=== PATIENT | female | born 1975 | race Caucasian/White ===

== ENCOUNTER 2017-02-02 20:04 | Emergency (ER) | payer OTHER | END 2017-02-02 21:15 | disposition left against medical advice (07) | LOC: UCCORT 20:04 | DX: Z53.21 Procedure and treatment not carried out due to patient leaving prior to being seen by health care provider (principal) ==

== ENCOUNTER 2019-01-10 17:12 | Emergency (ER) | payer OTHER ==
[2019-01-10 17:43] VITALS: BP 110/60
--- NOTE | 2019-01-10 18:00 | ED ---
Lower Extremity - HPI Summary HPI Summary: 43 yr old with the complaint of left knee pain. The patient rates the pain as 6 /10, onset of this acute flare up this morning,and it is mostly in the lateral knee, and at first was a twing of pain and then it progressed and also was swollen. the patient states that for the past four years she has been getting twinges of pain in this knee in the same lateral area. She states that Dr Michele operated twice on this knee; once for a meniscus tear, the other time for spur formation. The last surgery was in 2011. She denies fever, chills. Denies redness. Denies calf pain. - History of Current Complaint Chief Complaint: UCLowerExtremity Stated Complaint: LEFT KNEE PAIN Time Seen by Provider: 01/10/19 17:44 Hx Last Menstrual Period: 6 yrs Pain Intensity: 7 - Allergies/Home Medications Allergies/Adverse Reactions: Allergies Allergy/AdvReac Type Severity Reaction Status Date / Time codeine Allergy Severe Rash Verified 01/10/19 17:34 Adhesive Tape Allergy Rash Verified 07/26/15 18:39 Home Medications: Home Medications DULoxetine CAP* [Cymbalta CAP*] 10 mg PO DAILY 01/10/19 [History Confirmed ] Lisinopril 10 mg PO QAM 01/10/19 [History Confirmed 01/10/19] PMH/Surg Hx/FS Hx/Imm Hx Endocrine/Hematology History: Denies: Hx Diabetes Cardiovascular History: Reports: Hx Hypertension Denies: Hx Pacemaker/ICD Respiratory History: Reports: Hx Asthma Sensory History: Denies: Hx Hearing Aid Psychiatric History: Denies: Hx Panic Disorder - Surgical History Surgery Procedure, Year, and Place: uterine ablation; appy 08/2017. x2. 2 L knee surgery. tubal ligation. right cheek excision skin cancer Infectious Disease History: No Infectious Disease History: Denies: Hx Clostridium Difficile, Hx Hepatitis, Hx Human Immunodeficiency Virus (HIV), Hx of Known/Suspected MRSA, Hx Shingles, Hx Tuberculosis, Hx Known/ Suspected VRE, Hx Known/Suspected VRSA, History Other Infectious Disease, Traveled Outside the [place] in Last 30 Days - Family History Known Family History: Positive: None - Social History Alcohol Use: None Substance Use Type: Reports: None Smoking Status (MU): Heavy Every Day Tobacco Smoker Type: Cigarettes Amount Used/How Often: ~ 1ppd Length of Time of Smoking/Using Tobacco: ~ age 11 Review of Systems Constitutional: Negative Positive: Ear Ache All Other Systems Reviewed And Are Negative: Yes Physical Exam Triage Information Reviewed: Yes Vital Signs On Initial Exam: Initial Vitals Temp Pulse Resp BP Pulse Ox 98.4 F 94 24 110/60 100 01/10/19 17:38 01/10/19 17:38 01/10/19 17:38 01/10/19 17:38 01/10/19 17:38 Vital Signs Reviewed: Yes Appearance: Positive: Well-Appearing, No Pain Distress Skin: Positive: Warm, Skin Color Reflects Adequate Perfusion Head/Face: Positive: Normal Head/Face Inspection Eyes: Positive: EOMI ENT: Positive: Normal ENT inspection Respiratory/Lung Sounds: Positive: Clear to Auscultation, Breath Sounds Present Cardiovascular: Positive: RRR, Pulses are Symmetrical in both Upper and Lower Extremities Abdomen Description: Positive: Nontender Musculoskeletal: Positive: Strength/ROM Intact, Other - effusion left knee, no redness, no increased warmth. She is most tender over the lateral left knee and lateral collateral Neurological: Positive: Sensory/Motor Intact, Alert, Oriented to Person Place, Time, CN Intact II-III Psychiatric: Positive: Normal Diagnostics - Vital Signs Vital Signs Temp Pulse Resp BP Pulse Ox 01/10/19 17:38 98.4 F 94 24 110/60 100 - Laboratory Lab Statement: Any lab studies that have been ordered have been reviewed, and results considered in the medical decision making process. - Radiology left knee Radiology Interpretation Completed By: ED Physician - effusion, djd left knee Re-Evaluation - Re-Evaluation First Eval Re-Evaluation Time: 18:32 Change: Unchanged Comment: the patient and family feel her left lower leg looks more swollen to them and veins bigger. Lower Extremity Course/Dx - Course Course Of Treatment: 43 yr old with djd and effusion left knee. She has more prominent veins in the left lower leg. Patient verbalized that she will go with family to [facility] for further work up of her knee, leg swelling. Venous doppler labs, further evaluation. - Diagnoses Provider Diagnoses: Left knee pain, Effusion, left knee, Leg edema, left Discharge - Sign-Out/Discharge Documenting (check all that apply): Patient Departure All imaging exams completed and their final reports reviewed: No - Discharge Plan Condition: Good Disposition: HOME-RECOMMEND TO ED Patient Education Materials: Swollen Knee Joint (ED), Leg Edema (ED) Referrals: Felice Proctor PA [Primary Care Provider] - Additional Instructions: you need to go to the ER now for further evaluation of the left knee pain and left leg swelling discoloration. Do not delay. You have verbalized that you will be going to [facility]. - Billing Disposition and Condition Condition: GOOD Disposition: Home-Recommend to ED
--- NOTE | 2019-01-11 10:22 | UC ---
- Progress Note Progress Note: xray report left knee: IMPRESSION: 1. OSTEOARTHRITIS. 2. JOINT EFFUSION. 3. NO ACUTE OSSEOUS INJURY. IF SYMPTOMS PERSIST, RECOMMEND REPEAT IMAGING . R2 Course/Dx - Diagnoses Provider Diagnoses: Left knee pain, Effusion, left knee, Leg edema, left Discharge - Sign-Out/Discharge Documenting (check all that apply): Patient Departure All imaging exams completed and their final reports reviewed: Yes - Discharge Plan Condition: Good Disposition: HOME-RECOMMEND TO ED Patient Education Materials: Leg Edema (ED), Swollen Knee Joint (ED) Referrals: Felice Proctor PA [Primary Care Provider] - Additional Instructions: you need to go to the ER now for further evaluation of the left knee pain and left leg swelling discoloration. Do not delay. You have verbalized that you will be going to [facility]. - Billing Disposition and Condition Condition: GOOD Disposition: Home-Recommend to ED
== END 2019-01-10 18:45 | disposition home health service (06) ==
LOC: UCCORT 17:12
DX: M25.562 Pain in left knee (principal); M25.462 Effusion, left knee; R60.0 Localized edema; I10 Essential (primary) hypertension; J45.909 Unspecified asthma, uncomplicated; F17.210 Nicotine dependence, cigarettes, uncomplicated; Z88.5 Allergy status to narcotic agent; Z91.09 Other allergy status, other than to drugs and biological substances; Z79.899 Other long term (current) drug therapy
CPT/HCPCS: 99211; G0463